=== PATIENT | female | born 1995 | race Caucasian/White ===

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

== ENCOUNTER → 2017-07-31 | Outpatient (REF) ==
[2017-07-31 13:38] LABS: THYROID STIMULATING HORMONE 1.16 uIU/mL (0.465-4.680)
== END ==
LOC: ZLAB.WCH 12:48
PROVIDERS: Family Medicine
DX: Z01.89 Encounter for other specified special examinations (principal)